=== PATIENT | male | born 1985 | race Caucasian/White ===

== ENCOUNTER → 2022-03-24 11:49 | Outpatient (CLI) | payer OTHER, MEDICAID, SELFPAY ==
[2022-03-24 12:52] LABS: Add Manual Diff / Slide Review NO; Basophils Absolute Auto 100 /uL (0-100); Basophils Percent Auto 1.2 % (0-2); Eosinophils Absolute Auto 0 /uL (0-450); Eosinophils Percent Auto 0.8 % (2-4); Hematocrit 46.6 % (41-53); Hemoglobin 16.2 g/dL (13.5-17.5); Lymphocytes Absolute Auto 1600 /uL (1100-4500); Lymphocytes Percent Auto 29.8 % (25-40); Mean Corpuscular HGB Conc 34.7 % (30-36); Mean Corpuscular Hemoglobin 31.7 PG (26-34); Mean Corpuscular Volume 91.4 fL (80-100); Monocytes Absolute Auto 300 /uL (0-900); Monocytes Percent Auto 6.5 % (3-14); Neutrophils Absolute Auto 3300 /uL (1500-7000); Neutrophils Percent Auto 61.7 % (50-75); Platelet Count 174 X10^3/uL (150-400); Red Cell Distribution Width 13.9 % (11.6-14.8); White Blood Cell Count 5.3 X10^3/uL (4.5-11.0)
[2022-03-24 13:04] LABS: Alanine Aminotransferase 41 IU/L (<50); Albumin Globulin Ratio 1.5 (1.0-2.8); Alkaline Phosphatase 52 U/L (38-126); Aspartate Aminotransferase 52 IU/L (17-59); BUN Creatinine Ratio 14.5 (6-22); Bilirubin Total 0.4 mg/dL (0.2-1.3); Blood Urea Nitrogen 11 mg/dL (9-20); Calcium 9.5 mg/dL (8.4-10.2); Carbon Dioxide 24 mmol/L (22-32); Chloride 107 mmol/L (98-107); Cholesterol 222 mg/dL (140-199); Estimated Glomerular Filt Rate > 60 mL/min (>60); Globulin 3.3 g/dL (1.7-4.1); Glucose 96 mg/dL (70-100); HDL Cholesterol 59 mg/dL (40-60); HEMOLYSIS < 15 (0-50); LDL Cholesterol Calculated 138 mg/dL (<100); Potassium 4.2 mmol/L (3.4-5.1); Sodium 142 mmol/L (137-145); Total Protein 8.3 g/dL (6.3-8.2); Triglycerides 124 mg/dL (35-150)
== END ==
PROVIDERS: PCP Family Medicine; Referring Provider Family Medicine; Visit Provider Family Medicine
DX: Z00.00 Encounter for general adult medical examination without abnormal findings (principal)
CPT/HCPCS: 36415; 80053; 80061; 84443; 85025

== ENCOUNTER 2024-05-31 00:34 | Emergency (ER) | payer OTHER, MEDICAID, SELFPAY ==
[2024-05-31 00:53] VITALS: BP 175/102; PULSE 92; RESP 16; TEMP 36.5; O2SAT 97; BMI 38.2
[2024-05-31] MEDS: ONDANSETRON 4 MG/2 ML INJ IV (01:44)
[2024-05-31] MEDS: HYDROMORPHONE 0.5 MG INJ IV (01:44)
[2024-05-31 01:47] LABS: Add Manual Diff / Slide Review NO; Basophils Absolute Auto 100 /uL (0-100); Basophils Percent Auto 0.8 % (0-2); Eosinophils Absolute Auto 200 /uL (0-450); Eosinophils Percent Auto 1.6 % (2-4); Hematocrit 42.3 % (41-53); Hemoglobin 14.7 g/dL (13.5-17.5); Lymphocytes Absolute Auto 2200 /uL (1100-4500); Lymphocytes Percent Auto 21.8 % (25-40); Mean Corpuscular HGB Conc 34.8 % (30-36); Mean Corpuscular Hemoglobin 30.6 PG (26-34); Mean Corpuscular Volume 88.2 fL (80-100); Monocytes Absolute Auto 900 /uL (0-900); Monocytes Percent Auto 8.8 % (3-14); Neutrophils Absolute Auto 6800 /uL (1500-7000); Platelet Count 182 X10^3/uL (150-400); Red Cell Distribution Width 13.3 % (11.6-14.8); White Blood Cell Count 10.1 X10^3/uL (4.5-11.0)
[2024-05-31 01:56] LABS: Alanine Aminotransferase 24 IU/L (<50); Albumin 4.4 g/dL (3.5-5.0); Albumin Globulin Ratio 1.5 (1.0-2.8); Alkaline Phosphatase 66 U/L (38-126); Aspartate Aminotransferase 27 IU/L (17-59); BUN Creatinine Ratio 18.5 (6-22); Bilirubin Total 0.4 mg/dL (0.2-1.3); Blood Urea Nitrogen 20 mg/dL (9-20); Calcium 9.1 mg/dL (8.4-10.2); Carbon Dioxide 27 mmol/L (22-32); Chloride 107 mmol/L (98-107); Estimated Glomerular Filt Rate > 60 mL/min (>60); Globulin 2.9 g/dL (1.7-4.1); Glucose 127 mg/dL (70-100); HEMOLYSIS 27 (0-50); Lipase 134 U/L (23-300); Potassium 4.2 mmol/L (3.4-5.1); Sodium 137 mmol/L (137-145); Total Protein 7.3 g/dL (6.3-8.2)
--- NOTE | 2024-05-31 02:40 | ED.ABDPAIN ---
HPI - Abdominal Pain General Chief Complaint: Abdominal Pain Stated Complaint: stabbing pains in abd Time Seen by Provider: 05/31/24 01:06 Source: patient Mode of arrival: Family Vehicle History of Present Illness HPI narrative: Patient is a healthy 38-year-old male who presents today with sudden onset of left testicular pain. He reports that he had an uneventful vasectomy on April 29. He reports he has been recovering well. Today while at work he started having sharp shooting left testicular pain radiating up into his abdomen. He denies any sort of injury no fever or swelling. Pain becomes quite intense. Denies lifting anything heavy Related Data Previous Rx's Medication Instructions Recorded hydrocodone 5 mg-acetaminophen 325 1 tab PO Q6H PRN pain #10 tabs 05/31/24 mg tablet Allergies Allergy/AdvReac Type Severity Reaction Status Date / Time No Known Drug Allergies Allergy Verified 05/31/24 01:19 Exam Initial Vital Signs Initial Vital Signs: Vital Signs Temperature 97.7 F 05/31/24 00:53 Pulse Rate 92 H 05/31/24 00:53 Respiratory Rate 16 05/31/24 00:53 Blood Pressure 175/102 H 05/31/24 00:53 Pulse Oximetry 97 05/31/24 00:53 Oxygen Delivery Method Room Air 05/31/24 00:53 GENERAL: 38-year-old male appears uncomfortable and in no acute distress. HEENT: Head atraumatic,EOMI, pupils reactive, face symmetric, moist mucous membranes CARDIOVASCULAR: Regular rate and rhythm without murmurs, rubs or gallops. RESPIRATORY: Breath sounds equal bilaterally, no wheezes rales or rhonchi. ABDOMEN: Soft, nontender. Normoactive bowel sounds all 4 quadrants. No guarding or rebound. : Nurse Ramirez present for exam left testicle: Seems to be more high-riding extremely tender to touch EXTREMITIES: Normal range of motion, no clubbing or edema. Neurovascularly intact NEUROLOGICAL: Alert and oriented x4.Normal gait and speech. SKIN: Warm, dry, no laceration, no petechiae, no rashes or lesions. Course Orders Ordered: Discontinued Medications Hydrocodone Bitart/Acetaminophen (Hydrocodone/Acet 5/325 Prepack) 1 bottle MISC DIRECTED ONE Stop: 05/31/24 04:31 Last Admin: 05/31/24 04:38 Dose: 1 bottle Documented By: Hydromorphone HCl (Hydromorphone 0.5 Mg Inj) 0.5 mg IV NOW ONE Stop: 05/31/24 01:07 Last Admin: 05/31/24 01:44 Dose: 0.5 mg Documented By: Hydromorphone HCl (Hydromorphone 1 Mg Inj) 1 mg IV NOW ONE Stop: 05/31/24 02:39 Last Admin: 05/31/24 02:45 Dose: 1 mg Documented By: Hydromorphone HCl (Hydromorphone 1 Mg Inj) 1 mg IV Q2HR PRN PRN Reason: Pain, Moderate (4-6) Last Admin: 05/31/24 03:34 Dose: 1 mg Documented By: MARCELLA Ondansetron HCl (Ondansetron 4 Mg/2 Ml Inj) 4 mg IV NOW ONE Stop: 05/31/24 01:07 Last Admin: 05/31/24 01:44 Dose: 4 mg Documented By: Vital Signs Vital signs: Vital Signs - 8 hr 05/31/24 00:53 05/31/24 04:42 Temperature 97.7 F 98.2 F Pulse Rate 92 H Respiratory Rate 16 85 H Blood Pressure 175/102 H 121/67 Pulse Oximetry 97 98 Oxygen Delivery Method Room Air Room Air MDM - Abdominal Pain Lab Data 05/31/24 01:40 05/31/24 01:40 Labs: Lab Results 05/31/24 Range/Units 01:40 WBC 10.1 (4.5-11.0) X10^3/uL RBC 4.80 (4.5-5.9) X10^6/uL Hgb 14.7 (13.5-17.5) g/dL Hct 42.3 (41-53) % MCV 88.2 (80-100) fL MCH 30.6 (26-34) PG MCHC 34.8 (30-36) % RDW 13.3 (11.6-14.8) % Plt Count 182 (150-400) X10^3/uL Neut % (Auto) 67.0 (50-75) % Lymph % (Auto) 21.8 L (25-40) % [place] % (Auto) 8.8 (3-14) % Eos % (Auto) 1.6 L (2-4) % Baso % (Auto) 0.8 (0-2) % Neut # (Auto) 6800 (7604-1086) /uL Lymph # (Auto) 2200 (5356-3504) /uL [place] # (Auto) 900 (0-900) /uL Eos # (Auto) 200 (0-450) /uL Baso # (Auto) 100 (0-100) /uL Sodium 137 (137-145) mmol/L Potassium 4.2 (3.4-5.1) mmol/L Chloride 107 (98-107) mmol/L Carbon Dioxide 27 (22-32) mmol/L BUN 20 (9-20) mg/dL Creatinine 1.08 (0.66-1.25) mg/dL Estimated GFR > 60 (>60) mL/min BUN/Creatinine Ratio 18.5 (6-22) Glucose 127 H (70-100) mg/dL Calcium 9.1 (8.4-10.2) mg/dL Total Bilirubin 0.4 (0.2-1.3) mg/dL AST 27 (17-59) IU/L ALT 24 (<50) IU/L Alkaline Phosphatase 66 (38-126) U/L Total Protein 7.3 (6.3-8.2) g/dL Albumin 4.4 (3.5-5.0) g/dL Globulin 2.9 (1.7-4.1) g/dL Albumin/Globulin Ratio 1.5 (1.0-2.8) Lipase 134 (23-300) U/L Point of care testing: Urine Dip Bedside Urine Glucose Negative Bedside Urine Bilirubin - Negative Bedside Urine Ketone - Negative Urine Specific [place] 1.020 Bedside Urine Occult Blood - Negative Bedside Urine pH 6.0 Bedside Urine Protein +/- 15 Bedside Urine Urobilinogen - Negative Bedside Urine Nitrite - Negative Bedside Urine Leukocytes - Negative Esterase Imaging Data US scrotum: Radiologist's Impression: Preliminary report: No sonographic evidence of testicular torsion epididymitis orchitis or solid intra/extratesticular mass small hydroceles MDM Narrative Medical decision making narrative: Patient 38-year-old male presenting today with sudden onset of severe left testicular pain. He is just over 1 month postop from vasectomy. He was quite tender but no obvious sign of testicular torsion he has no injury. Blood work has been reviewed and overall reassuring. Ultrasound confirms no abnormality Upon further discussion patient and state that he has a very tender and sensitive scrotum at baseline but this is significantly worse. He has received multiple doses of Dilaudid which has helped. They state that his scrotum is erythematous do not appreciate significant erythema he is afebrile came on suddenly low suspicion for infection. No concern for STD. No evidence of epididymitis Discharge Plan Departure Patient Disposition: Home Clinical Impression: Bilateral hydrocele Instructions: DI for Hydrocele-Adult Activity Restrictions/Additional Instructions: *You have been diagnosed with bilateral small hydroceles *What to do: At this time causing your severe pain. You do small amount of fluid. Recommend supportive underwear may try a small ice pack. However if you continue to have ongoing pain please return to the emergency department *Continue to take medications as directed [place] 1-2 tablet every 6 hours if needed for pain *Follow up with your primary care provider in 2-3 days or call [phone] *Return to ER if you should have increasing pain vomiting fever [or] any new, worsening or concerning symptoms CONTROLLED SUBSTANCE DISCHARGE (Narcotoic/benzodiazepine/Flexeril/Phenergan) 1. You have been prescribed narcotic medications, it does have acetaminophen/Tylenol/paracetamol in it, DO NOT TAKE MORE THAN 4,00mg in 24 hours of Tylenol. TRAMADOL DOES NOT CONTAIN TYLENOL 2. Please understand that we cannot provide further refills of narcotics, benzodiazepines or controlled substances through the ED and her pain management will need to be through your provider. 3. While on these medications you cannot drive or operate heavy machinery. 4. You cannot sign legal documents or perform any duties such as this. 5. As long as you're taking opiate pain medications he should also be taking a stool softener such as Colace, Dulcolax, MiraLAX or prune juice, to help avoid constipation. Prescriptions: New hydrocodone-acetaminophen 5-325 mg tablet 1 tab PO Q6H PRN (Reason: pain) Qty: 10 0RF Referrals: Laith Mathew MD [Primary Care Provider] - Stand Alone Forms: Patient Portal/API, Work Release Note
[2024-05-31] MEDS: HYDROMORPHONE 1 MG INJ IV ×2 (02:45→03:34)
--- NOTE | 2024-05-31 03:07 | PC.NURSE ---
Assisted with testicular examination. Pt tolerated fair. Left testicle is very sensitive.
--- NOTE | 2024-05-31 03:08 | DI.US.S_ITS ---
PROCEDURE: US SCROTUM INDICATIONS: left testicular pain concern for torsion TECHNIQUE: Real-time scanning was performed of the scrotum and testicles, with image documentation. Color and pulse Doppler interrogation was performed of both testicles. COMPARISON: None. FINDINGS: Right: Testicle is normal in size at 5.5 x 2.6 x 3.7 cm, and homogenous in echotexture. Epididymis is normal in overall size and morphology. No hydrocele or varicoceles. Overlying scrotal skin is normal in thickness. Left: Testicle is normal in size at 4.4 x 2.5 x 3.6 cm, and homogeneous in echotexture. Epididymis is normal in overall size and morphology. No hydrocele or varicoceles. Overlying scrotal skin is mildly thickened. Doppler: Color and pulse Doppler demonstrate normal and symmetric arterial flow in both testicles. IMPRESSION: No evidence of torsion at time of exam. Intermittent torsion cannot be excluded. Mild thickening of the left scrotal skin the wall. It is overall nonspecific. Recommend direct visualization. Dictated by: Trang Mercado M.D. on 05/31/2024 at 7:24 Approved by: Trang Mercado M.D. on 05/31/2024 at 7:25
[2024-05-31] MEDS: HYDROCODONE/ACET 5/325 PREPACK 1 BOTTLE MISC (04:38)
[2024-05-31 04:42] VITALS: BP 121/67; RESP 85; TEMP 36.8; O2SAT 98
== END 2024-05-31 04:43 | disposition home or self-care (01) ==
PROVIDERS: Emergency Provider Emergency Medicine; PCP Family Medicine
DX: N43.3 Hydrocele, unspecified (principal)
CPT/HCPCS: 36415; 76870; 80053; 81003; 83690; 85025; 93975; 96374; 96375; 96376; 99284; J1170; J2405